=== PATIENT | female | born 1965 | race Caucasian/White ===

== ENCOUNTER → 2023-08-06 12:10 | Outpatient (CLI) | payer OTHER, SELFPAY ==
--- NOTE | 2023-08-06 | DI.US.S_ITS ---
PROCEDURE: US PELVIC COMPLETE INDICATIONS: Postmenopausal bleeding TECHNIQUE: Real-time scanning was performed of the pelvic organs, with image documentation. Additional endovaginal scanning was necessary due to incomplete visualization of the adnexal and endometrial structures by transabdominal scanning. COMPARISON: None. FINDINGS: Uterus: Uterus is anteverted and normal in size at 6.5 x 6.2 x 4.3 cm. The myometrium is homogeneous. The endometrium measures 6 mm combined thickness. There are cystic spaces within the endometrium and adjacent to the endometrium, possibly representing adenomyosis. There is a subserosal left anterior fibroid measuring 1.6 cm. Ovaries: The right ovary measures 2.3 x 2.0 x 1.3 cm, with a calculated ovarian volume of 3.1 cc. The left ovary measures 1.9 x 1.8 x 1.2 cm, with a calculated ovarian volume of 2.1 cc. The ovaries have a normal sonographic appearance. Ovaries have a somewhat atrophic appearance. No adnexal masses are seen. Other: No pathologic free abdominal or pelvic fluid. IMPRESSION: Question adenomyosis. Slightly abnormally thickened endometrium in a patient with postmenopausal bleeding. Comment: Ordering clinician not identified on the request. Therefore, it is uncertain whether this order is placed by a carpet installer period if the order is not placed by a carpet installer, would recommend DRAWING PRESS OPERATOR referral for a mildly abnormal thickened endometrium in a postmenopausal patient. We strive to produce accurate, complete, and clear reports of imaging services. To assist us in improving patient care, this report was composed using standard report templates and voice recognition software. Therefore, it may contain abnormal punctuation, insertions and/or omissions. Occasional wrong-word or sound-alike substitutions may occur. Though we review the report and make efforts to correct it, we do recommend that the report be read carefully in proper context to recognize any text inaccuracies. Dictated by: Kaushik Auguste M.D. on 08/06/2023 at 15:22 Approved by: Kaushik Auguste M.D. on 08/06/2023 at 15:26
== END ==
PROVIDERS: PCP Physician Assistant Medical; Referring Provider Nurse Practitioner Family; Visit Provider Nurse Practitioner Family
DX: N95.0 Postmenopausal bleeding (principal); D25.2 Subserosal leiomyoma of uterus; R93.89 Abnormal findings on diagnostic imaging of other specified body structures
CPT/HCPCS: 76830; 76856